=== PATIENT | female | born 1995 | race African-American/Black ===

== ENCOUNTER 2021-12-08 10:38 | Inpatient (IN) | payer BC, MEDICAID ==
[~2021-12-08] VITALS: Ht 180.3 cm; Wt 97.6 kg
[2021-12-08] MEDS ORDERED: ASPIRIN 81MG TABLET PO ONE (11:00)
[2021-12-08] MEDS ORDERED: SODIUM CHLORIDE 0.9% 1,000 ML IV ONE (11:00)
[2021-12-08 11:26] LABS: BASOPHILS % 0.4 % (0.0-2.0); EOSINOPHILS % 4.3 % (0.0-5.0); HEMATOCRIT. 39.9 % (36.0-48.0); LYMPHOCYTES % 35.5 % (20.0-50.0); MEAN CORPUSCULAR HEMOGLOBIN 27.8 pg (28.0-32.0); MEAN PLATELET VOLUME 11.2 fl (7.4-10.4); NEUTROPHILS % 47.8 % (40.0-76.0); PLATELET 89 x1000/uL (130-400); RED BLOOD CELL COUNT 4.69 mill/uL (4.2-5.4); RED CELL DISTRIBUTION WIDTH 15.3 % (11.6-14.6)
[2021-12-08 11:39] LABS: CHLORIDE 108 mEq/L (98-107)
[2021-12-08] MEDS ORDERED: ENOXAPARIN 100MG/ML SYR SUBCUT ONE (14:15)
[2021-12-08] MEDS ORDERED: IOHEXOL-350 100 ML BOTTLE ONE (14:21)
[2021-12-08] MEDS ORDERED: DOCUSATE SODIUM 100MG CAPSULE PO PRN (16:30)
[2021-12-08] MEDS ORDERED: CLONIDINE 0.1MG TABLET PO PRN (16:30)
[2021-12-08] MEDS ORDERED: HYDROMORPHONE HCL/PF 2MG/ML CPJ IV PRN (16:30)
[2021-12-08] MEDS ORDERED: ACETAMINOPHEN 325MG TABLET PO PRN (16:30)
[2021-12-08] MEDS ORDERED: HYDROCODONE/ACETAMINOPHEN 5/325MG TABLET PO PRN (16:30)
[2021-12-08] MEDS ORDERED: NALOXONE HCL 0.4MG/ML VIAL IV PRN (16:30)
[2021-12-08] MEDS ORDERED: MAGNESIUM/ALUMINUM HYDROXIDE/SIMETHICONE 30ML UDC PO PRN (16:30)
[2021-12-08] MEDS ORDERED: ONDANSETRON HCL 4MG/2ML INJ IV PRN (16:30)
[2021-12-08] MEDS ORDERED: GUAIFENESIN 200MG/10ML SUGAR FREE UDC PO PRN (16:30)
[2021-12-08 17:30] LABS: PROTHROMBIN TIME 10.6 sec (9.6-11.0)
[2021-12-08] MEDS: ENOXAPARIN 100MG/ML SYR SUBCUT SCH (23:13)
[2021-12-09 04:52] LABS: BASOPHILS % 0.5 % (0.0-2.0); EOSINOPHILS % 5.9 % (0.0-5.0); HEMATOCRIT. 37.5 % (36.0-48.0); HEMOGLOBIN. 12.3 g/dL (12.0-16.0); LYMPHOCYTES % 55.2 % (20.0-50.0); MEAN CORPUSCULAR HEMOGLOBIN 27.7 pg (28.0-32.0); MEAN CORPUSCULAR VOLUME 84.4 fL (81.0-99.0); MEAN PLATELET VOLUME 12.1 fl (7.4-10.4); MONOCYTES % 9.1 % (2.0-8.0); NEUTROPHILS % 29.3 % (40.0-76.0); PLATELET 102 x1000/uL (130-400); RED BLOOD CELL COUNT 4.44 mill/uL (4.2-5.4); RED CELL DISTRIBUTION WIDTH 15.1 % (11.6-14.6)
[2021-12-09 05:04] LABS: CHLORIDE 109 mEq/L (98-107)
[2021-12-09 05:11] LABS: LDL CHOLESTEROL 89 mg/dL (5-100)
[2021-12-09 05:12] LABS: HDL CHOLESTEROL 88 mg/dL (40-59)
[2021-12-09 10:00] VITALS: BP 123/88
[2021-12-09 11:00] VITALS: BP 123/88
[2021-12-09 12:00] VITALS: BP 112/75
[2021-12-09] MEDS: ENOXAPARIN 100MG/ML SYR SUBCUT SCH ×2 (12:24→22:33)
[2021-12-09] MEDS ORDERED: ETON68IM3 SQ (13:05)
[2021-12-09] MEDS ORDERED: PNEUMOCOCCAL 23-VAL P-SAC VAC 0.5 ML IM ONE (13:30)
[2021-12-09 16:00] VITALS: BP 124/78
[2021-12-09 20:00] VITALS: BP 119/83
[2021-12-10] VITALS: BP_SYST 107; BP_SYST 127; BP_DIAS 66; BP_DIAS 70
[2021-12-10 04:00] VITALS: BP 105/59
[2021-12-10 08:00] VITALS: BP 131/86
[2021-12-10] MEDS: ENOXAPARIN 100MG/ML SYR SUBCUT SCH (09:49)
[2021-12-10 11:27] LABS: BASOPHILS % 0.6 % (0.0-2.0); EOSINOPHILS % 3.2 % (0.0-5.0); HEMATOCRIT. 39.5 % (36.0-48.0); HEMOGLOBIN. 13.4 g/dL (12.0-16.0); LYMPHOCYTES % 24.9 % (20.0-50.0); MEAN CORPUSCULAR HEMOGLOBIN 28.7 pg (28.0-32.0); MEAN CORPUSCULAR VOLUME 84.5 fL (81.0-99.0); MONOCYTES % 6.8 % (2.0-8.0); NEUTROPHILS % 64.5 % (40.0-76.0); RED BLOOD CELL COUNT 4.68 mill/uL (4.2-5.4); RED CELL DISTRIBUTION WIDTH 14.8 % (11.6-14.6)
[2021-12-10 12:00] VITALS: BP 115/64
[2021-12-10 12:39] VITALS: BP 115/64
[2021-12-10 13:50] LABS: MEAN PLATELET VOLUME 12.2 fl (7.4-10.4); PLATELET 113 x1000/uL (130-400)
== END 2021-12-10 15:00 | disposition home or self-care (01) | DRG 175 ==
LOC: ER 10:38 → MICUSO 15:56 → 6WST 12-09 09:04
PROVIDERS: ADMIT Hospitalist; ATTEND Hospitalist
DX: I26.92 Saddle embolus of pulmonary artery without acute cor pulmonale (principal); J96.00 Acute respiratory failure, unspecified whether with hypoxia or hypercapnia; I21.4 Non-ST elevation (NSTEMI) myocardial infarction; E44.1 Mild protein-calorie malnutrition; D69.6 Thrombocytopenia, unspecified; Z20.822 Contact with and (suspected) exposure to COVID-19; D72.10 Eosinophilia, unspecified; J45.909 Unspecified asthma, uncomplicated; Z59.00 Homelessness unspecified; Z68.30 Body mass index [BMI] 30.0-30.9, adult
CPT/HCPCS: 36415; 71045; 71275; 80053; 80061; 83880; 84484; 85025; 85379; 87426; 90732; 93005; 93306; 93970; 99291; J1650; J7030; Q9967

== ENCOUNTER 2022-09-02 14:06 | Emergency (ER) | payer BC, MEDICAID ==
[~2022-09-02] VITALS: Ht 180.3 cm; Wt 105.0 kg
[~2022-09-02 14:06] MED LIST: ETON68IM4 SQ
[2022-09-02] MEDS ORDERED: NITROGLYCERIN 0.4MG TABLET SL SL PRN (16:15)
[2022-09-02] MEDS ORDERED: ASPIRIN 81MG TABLET PO ONE (16:15)
[2022-09-02 16:35] LABS: BASOPHILS % 0.8 % (0.0-2.0); EOSINOPHILS % 1.3 % (0.0-5.0); HEMATOCRIT. 36.5 % (36.0-48.0); HEMOGLOBIN. 12.1 g/dL (12.0-16.0); LYMPHOCYTES % 27.2 % (20.0-50.0); MEAN CORPUSCULAR HEMOGLOBIN 28.6 pg (28.0-32.0); MEAN CORPUSCULAR VOLUME 86.2 fL (81.0-99.0); MEAN PLATELET VOLUME 10.6 fl (7.4-10.4); MONOCYTES % 5.8 % (2.0-8.0); NEUTROPHILS % 64.9 % (40.0-76.0); PLATELET 117 x1000/uL (130-400); RED BLOOD CELL COUNT 4.24 mill/uL (4.2-5.4); RED CELL DISTRIBUTION WIDTH 14.3 % (11.6-14.6)
[2022-09-02 16:44] LABS: D-DIMER 0.39 mg/L FEU (<0.50); PARTIAL THROMBOPLASTIN TIME 26.5 sec (23.4-31.0); PROTHROMBIN TIME 10.8 sec (9.6-11.0)
[2022-09-02 16:47] LABS: CHLORIDE 103 mEq/L (98-107)
[2022-09-02 17:11] LABS: HCG SCREEN NEGATIVE
[2022-09-02] MEDS ORDERED: ASPIRIN 81MG TABLET PO NR (18:15)
[2022-09-02] MEDS ORDERED: IOHEXOL-350 100 ML BOTTLE ONE (19:16)
[2022-09-03 10:30] VITALS: BP 117/58
== END 2022-09-03 16:03 | disposition home or self-care (01) ==
LOC: ER 14:35 → EDBEDREQ 09-03 07:39 → ER 09-03 16:03 → CANBEDREQ 09-04 12:35
DX: R07.9 Chest pain, unspecified (principal); J45.909 Unspecified asthma, uncomplicated; Z87.01 Personal history of pneumonia (recurrent); Z86.711 Personal history of pulmonary embolism; Z20.822 Contact with and (suspected) exposure to COVID-19
CPT/HCPCS: 36415; 71045; 71275; 80053; 81025; 83880; 84484; 84703; 85025; 85379; 85610; 85730; 87426; 93005; 93970; 99285; C9803; Q9967; Z7610

== ENCOUNTER 2023-02-11 17:05 | Emergency (ER) | payer MEDICAID ==
[~2023-02-11] VITALS: Ht 180.3 cm; Wt 96.0 kg
[2023-02-11 17:09] VITALS: BP 130/88
== END 2023-02-11 19:14 | disposition left against medical advice (07) ==
LOC: ER 17:05
DX: Z53.21 Procedure and treatment not carried out due to patient leaving prior to being seen by health care provider (principal); I49.9 Cardiac arrhythmia, unspecified
CPT/HCPCS: 71045; 93005; 99281

== ENCOUNTER 2023-02-12 12:29 | Emergency (ER) | payer MEDICAID ==
[~2023-02-12] VITALS: Ht 180.3 cm; Wt 95.9 kg
[2023-02-12 15:30] VITALS: BP 125/86
[2023-02-12 16:04] LABS: CHLORIDE 105 mEq/L (98-107)
[2023-02-12 16:06] LABS: BASOPHILS % 0.7 % (0.0-2.0); EOSINOPHILS % 1.7 % (0.0-5.0); HEMOGLOBIN. 12.8 g/dL (12.0-16.0); LYMPHOCYTES % 33.5 % (20.0-50.0); MEAN CORPUSCULAR HEMOGLOBIN 28.2 pg (28.0-32.0); MEAN CORPUSCULAR VOLUME 85.4 fL (81.0-99.0); MONOCYTES % 11.4 % (2.0-8.0); NEUTROPHILS % 52.7 % (40.0-76.0); RED BLOOD CELL COUNT 4.56 mill/uL (4.2-5.4); RED CELL DISTRIBUTION WIDTH 15.9 % (11.6-14.6)
[2023-02-12 16:09] LABS: HCG SCREEN NEGATIVE
[2023-02-12 16:35] LABS: MEAN PLATELET VOLUME 11.4 fl (7.4-10.4); PLATELET 102 x1000/uL (130-400)
== END 2023-02-12 17:25 | disposition home or self-care (01) ==
LOC: ER 14:39
DX: R20.2 Paresthesia of skin (principal); J45.909 Unspecified asthma, uncomplicated
CPT/HCPCS: 36415; 71045; 80053; 81025; 84703; 85025; 93005; 99285